=== PATIENT | female | born 1995 | race Caucasian/White ===

== ENCOUNTER 2016-12-24 08:01 | Emergency (ER) | payer OTHER, BC ==
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
--- NOTE | 2016-12-25 17:47 | RADIOLOGY REPORT ---
Three views of the cervical spine demonstrate no displaced fracture, subluxation or bony destructive change. There is reversal of the normal cervical lordosis. The disk spaces and adjacent soft tissues appear unremarkable. IMPRESSION: No displaced injury is identified. Reversal of the normal cervical lordosis is noted. MTDD
== END 2016-12-24 09:53 | disposition home or self-care (01) ==
LOC: ER 08:01
DX: S13.4XXA Sprain of ligaments of cervical spine, initial encounter (principal); V43.52XA Car driver injured in collision with other type car in traffic accident, initial encounter; Y92.413 State road as the place of occurrence of the external cause; Z74.3 Need for continuous supervision
CPT/HCPCS: 72040; 99283; A0425; A0427